=== PATIENT | female | born 1965 | race Caucasian/White ===

== ENCOUNTER 2020-03-03 07:44 | Outpatient (CLI) | payer BC, SELFPAY ==
[2020-03-03 08:31] LABS: Alanine Aminotransferase 21 U/L (4-35); Albumin Level 4.3 g/dL (3.5-5.1); Alkaline Phosphatase 55 U/L (38-126); Aspartate Amino Transferase 22 U/L (14-36); Bilirubin,Total 0.6 mg/dL (0.2-1.3); Blood Urea Nitrogen 12 mg/dL (7-17); Calcium 8.9 mg/dL (8.4-10.2); Carbon Dioxide 29 mmol/L (22-30); Chloride 103 mmol/L (98-107); Cholesterol 212 mg/dL (0-200); Estimated Glomerular Filt Rate > 60; Glucose 95 mg/dL (65-105); HDL Direct 49 mg/dL; Potassium 3.8 mmol/L (3.4-5.0); Sodium 138 mmol/L (137-145); Triglycerides 77 mg/dL (<150)
[2020-03-03 08:42] LABS: LDL Cholesterol Direct 137 mg/dL
[2020-03-07 00:26] LABS: Vitamin D 1,25 (OH)2 Total 40 pg/mL (18-72); Vitamin D2 1,25 (OH)2 <8 pg/mL; Vitamin D3 1,25 (OH)2 40 pg/mL
== END 2020-03-03 07:45 | disposition home or self-care (01) ==
PROVIDERS: PCP Family Medicine; Visit Provider Physician Assistant
DX: I10 Essential (primary) hypertension (principal); E78.2 Mixed hyperlipidemia; E55.9 Vitamin D deficiency, unspecified
CPT/HCPCS: 36415; 80053; 80061; 82652

== ENCOUNTER 2021-05-18 10:10 | Outpatient (CLI) | payer BC, SELFPAY ==
[2021-05-18 11:56] LABS: Alanine Aminotransferase 34 U/L (4-35); Albumin Level 4.5 g/dL (3.5-5.1); Alkaline Phosphatase 62 U/L (38-126); Anion Gap 5 mmol/L (8-16); Aspartate Amino Transferase 30 U/L (14-36); Bilirubin,Total 0.8 mg/dL (0.2-1.3); Blood Urea Nitrogen 14 mg/dL (7-17); Calcium 9.4 mg/dL (8.4-10.2); Carbon Dioxide 31 mmol/L (22-30); Chloride 103 mmol/L (98-107); Cholesterol 220 mg/dL (0-200); Estimated Glomerular Filt Rate > 60; Glucose 95 mg/dL (65-110); HDL Direct 52 mg/dL; Potassium 4.1 mmol/L (3.4-5.0); Sodium 139 mmol/L (137-145); Triglycerides 60 mg/dL (<150)
[2021-05-18 12:07] LABS: LDL Cholesterol Direct 117 mg/dL
[2021-05-18 12:29] LABS: Thyroid Stimulating Hormone 0.738 uIU/mL (0.465-4.680)
[2021-05-18 12:32] LABS: Free T4 Free Thyroxine 1.22 ng/mL (0.78-2.19)
[2021-05-23 22:11] LABS: Vitamin D 1,25 (OH)2 Total 42 pg/mL (18-72); Vitamin D2 1,25 (OH)2 <8 pg/mL; Vitamin D3 1,25 (OH)2 42 pg/mL
== END 2021-05-18 10:11 | disposition home or self-care (01) ==
PROVIDERS: PCP Family Medicine; Visit Provider Physician Assistant
DX: E55.9 Vitamin D deficiency, unspecified (principal); R53.83 Other fatigue; I10 Essential (primary) hypertension; E78.5 Hyperlipidemia, unspecified
CPT/HCPCS: 36415; 80053; 80061; 82652; 84439; 84443

== ENCOUNTER 2022-04-26 10:31 | Outpatient (CLI) | payer BC, SELFPAY ==
--- NOTE | ~2022-04-26 | XR_ITS ---
EXAM: XR hip LT min 3V w AP pelvis DATE: 04/26/2022 11:04 HISTORY: M25.559 - Pain in unspecified hip, lateral pain, NKI . COMPARISON: None available. FINDINGS: Normal mineralization. No fracture or dislocation. No lytic or blastic lesion. Joint space s are maintained. No erosion or periosteal change. Soft tissues within normal limits. IMPRESSION: No acute osseous finding in the left hip or pelvis. Reviewed, dictated and finalized at location K.
[2022-04-26 11:08] LABS: Alanine Aminotransferase 28 U/L (6-35); Albumin Level 4.3 g/dL (3.5-5.1); Alkaline Phosphatase 59 U/L (38-126); Anion Gap 8 mmol/L (8-16); Aspartate Amino Transferase 24 U/L (14-36); Bilirubin,Total 0.9 mg/dL (0.2-1.3); Blood Urea Nitrogen 12 mg/dL (7-17); Calcium 9.1 mg/dL (8.4-10.2); Carbon Dioxide 29 mmol/L (22-30); Chloride 102 mmol/L (98-107); Cholesterol 226 mg/dL (0-200); Estimated Glomerular Filt Rate > 60; Glucose 98 mg/dL (65-110); HDL Direct 52 mg/dL; Potassium 3.9 mmol/L (3.4-5.0); Sodium 139 mmol/L (137-145); Triglycerides 79 mg/dL (<150)
[2022-04-26 11:19] LABS: LDL Cholesterol Direct 142 mg/dL
== END 2022-04-26 10:32 | disposition home or self-care (01) ==
PROVIDERS: PCP Family Medicine; Visit Provider Physician Assistant
DX: E78.5 Hyperlipidemia, unspecified (principal); I10 Essential (primary) hypertension; Z13.1 Encounter for screening for diabetes mellitus; Z13.220 Encounter for screening for lipoid disorders; M25.559 Pain in unspecified hip
CPT/HCPCS: 36415; 73502; 80053; 80061

== ENCOUNTER 2024-04-23 10:49 | Outpatient (CLI) | payer BC, SELFPAY ==
[2024-04-23 11:28] LABS: Alanine Aminotransferase 29 U/L (6-35); Albumin Level 4.2 g/dL (3.5-5.1); Alkaline Phosphatase 60 U/L (38-126); Anion Gap 9 mmol/L (4-12); Aspartate Amino Transferase 24 U/L (14-36); Bilirubin,Total 0.8 mg/dL (0.2-1.3); Blood Urea Nitrogen 11 mg/dL (7-17); Calcium 9.1 mg/dL (8.4-10.2); Carbon Dioxide 28 mmol/L (22-30); Chloride 100 mmol/L (98-107); Cholesterol 241 mg/dL (0-200); Estimated Glomerular Filt Rate > 60; Glucose 103 mg/dL (65-110); HDL Direct 47 mg/dL; Potassium 4.3 mmol/L (3.4-5.0); Sodium 137 mmol/L (137-145); Triglycerides 107 mg/dL (<150)
[2024-04-23 11:39] LABS: LDL Cholesterol Direct 157 mg/dL
== END 2024-04-23 10:50 | disposition home or self-care (01) ==
LOC: ANHLAB 10:51
PROVIDERS: PCP Family Medicine; Visit Provider Physician Assistant Medical
DX: E78.2 Mixed hyperlipidemia (principal); I10 Essential (primary) hypertension
CPT/HCPCS: 36415; 80053; 80061

== ENCOUNTER 2025-04-15 08:58 | Outpatient (CLI) | payer BC, SELFPAY ==
--- OUTSIDE RECORDS SUMMARY | 2025-04-15 09:01 | XMS_ITS | Clinical Summary ---
Author Organization [facility] Address [address] [place] [address] Phone Care Team Providers Care Supervisor Metal Placing Name Role Phone Tatyana Wiseman MD Primary Care Provider [phone] Allergies Active Allergy Reactions Criticality Noted Date Comments Benzoyl Peroxide Unknown,Hives 08/06/2017 Codeine Nausea,Vomiting Reaction: Nausea, Vomiting, Diclofenac Itching,Swelling Reaction: swelling, itching, Hydromorphone Hcl Hives 10/17/2015 Hydrocodone Vomiting High 08/06/2017 Hydromorphone Hives Reaction: hives, Penicillins Unknown,Rash 10/17/2015 Reaction: Rash, Pravastatin Sodium Rash 08/18/2017 Sulfa Antibiotics Rash 10/17/2015 Bactrim/ septra Sulfamethoxazole Rash Reaction: Rash, Sulfanilamide Rash Reaction: Rash, Trimethoprim Rash Reaction: Rash, Diclofenac Sodium Unknown 10/17/2015 Medications Triamcinolone Acetonide (NASACORT AQ) 55 MCG/ACT Aerosol 1-2 Sprays by Nasal route daily. 3 Bottle 3 6 Active estradiol (CLIMARA) 0.075 MG/24HR PATCH BIWEEKLY Take 0.075 mg by mouth twice a week. 6 Active Ergocalciferol (VITAMIN D2) 2000 UNITS Tablet 6 Active Probiotic Product (TRUBIOTICS PO) 6 Active azelastine (ASTELIN) 0.1 % SolutionIndications :Allergic rhinitis due to pollen, unspecified rhinitis seasonality 2 Sprays by Nasal route 2 times daily. Use in each nostril as directed 3 Bottle 3 7 Active metoprolol Succinate (TOPROL-XL) 100 MG TABLET SR 24 HR Take 1 Tab by mouth daily. 90 Tab 3 7 Active potassium chloride CR (KLORCON) 10 MEQ Tablet Controlled Release Take 1 Tab by mouth 2 times daily. 180 Tab 3 7 Active fexofenadine (JOVAN) 180 MG Tablet Take 180 mg by mouth daily. Active glucosamine-chondro itin 500-400 MG Capsule Take 1 Cap by mouth 2 times daily. Active Multiple Vitamin (MULTIVITAMIN IRON-FREE) Tablet Take by mouth daily. Active Cholecalciferol (VITAMIN D3) 1000 UNIT TabletIndications:t akes 2000 uinits daily Take 1,000 Units by mouth. Active atorvastatin (LIPITOR) 10 MG TabletIndications:H yperlipidemia, unspecified hyperlipidemia type Take 1 Tab by mouth daily. 30 Tab 3 7 Active Active Problems Problem Noted Date Diagnosed Date Obesity (BMI 30.0-34.9) 08/18/2017 Allergic rhinitis due to pollen 06/23/2016 Hypokalemia 12/20/2015 Hypertension Hyperlipidemia Migraines Anxiety Resolved Problems Problem Noted Date Diagnosed Date Resolved Date Obesity (BMI 35.0-39.9 without comorbidity) 12/20/2015 08/18/2017 Encounters Date Type Department Care Team Description 04/04/2025 4:44 PM CDT - 04/04/2025 11:59 PM CDT Hospital Encounter [facility] Mammography [address] [place] [address] Tatyana Wiseman MD Discharge Disposition: Discharged to home or Selfcare 04/04/2025 Travel from Last 3 Months Immunizations Immunization Administration Dates Next Due Covid-19, Mrna, Lnp-s, PF, 1 00 mcg/0.5 mL Dose (Moderna) 10/30/2020,10/05/2020 Influenza Vaccine greater than 3 yrs 06/28/2015, 09/28/2010 06/28/2016 Influenza Vaccine, Quadrivalent, PF 05/30,07/17/2022,07/01/2021,07/05,07/06/2019,06/24/2017 Pneumococcal Vaccine Adult - 23 Valent 09/28/2008 TD VACCINE 09/28/2006 Family History Medical History Relation Name Comments Cancer Father Breast Cancer Maternal Aunt High Cholesterol Mother Hypertension Mother Osteoarthritis Mother Relation Name Status Comments Father Maternal Aunt Mother Alive Social History Tobacco Use Types Packs/Day Years Used Date Smoking Tobacco: Never Smokeless Tobacco: Never Alcohol Use Standard Drinks/Week Comments Yes 1 (1 standard drink = 0.6 oz pur e alcohol) Sexually Active Control Partners Comments Yes Comments No Sex and Gender Information Value Date Recorded Sex Assigned at Not on file Legal Sex Female 9:17 PM CDT Gender Identity Not on file Sexual Orientation Not on file Last Filed Vital Signs Vital Sign Reading Time Taken Comments Blood Pressure 130/76 08/18/2017 4:13 PM FRONT COUNTER ATTENDANT Pulse 74 08/18/2017 4:13 PM FRONT COUNTER ATTENDANT Temperature 36.1 C (97 F) 08/18/2017 4:13 PM FRONT COUNTER ATTENDANT Respiratory Rate 20 08/18/2017 4:13 PM FRONT COUNTER ATTENDANT Oxygen Saturation 98% 08/18/2017 4:13 PM FRONT COUNTER ATTENDANT Inhaled Oxygen Concentration - - Weight 92.8 kg (204 lb 8 oz) 08/18/2017 4:13 PM FRONT COUNTER ATTENDANT Height 165.1 cm (5' 5) 08/18/2017 4:13 PM FRONT COUNTER ATTENDANT Body Mass Index 34.03 08/18/2017 4:13 PM FRONT COUNTER ATTENDANT Plan of Treatment Health Maintenance Due Date Last Done Comments Hepatitis C Virus (HCV) Screening 1965 TdaP Immunization 1963 Cologuard 2008 Pneumococcal Immunization (50+ years) (2 of 2 - PCV) 2013 09/28/2008 Zoster Immunization (1 of 2) 2013 Immunochemical Fecal Occult Blood 07/16/2021 07/16/2020, 06/29/2018, 06/15/2016, Additional history exists Colonoscopy 01/28/2022 01/29/2012 Colorectal Cancer Screening 01/28/2022 Influenza Immunization (#1) 05/29/202505/30, 07/17/2022, 07/01/2021, Additional history exists Mammogram 04/04/2026 04/04/2025, 03/28, 08/20/2020, Additional history exists Respiratory Syncytial Virus (RSV) Immunization (Adult) (1 - 1-dose 75+ series) 2038 Pneumococcal Immunization Combined Discontinued 09/28/2008 SARS-COV-2 Immunization Completed 06/24/20 24, 07/13/2023, 09/23/2022, Additional history exists Hepatitis B Immunization Aged Out No longer eligible based on patient's age to complete this topic Human Papillomavirus (HPV) Immunization Aged Out No longer eligible based on patient's age to complete this topic Meningococcal Immunization (ACWY) Aged Out No longer eligible based on patient's age to complete this topic Rotavirus Immunization Aged Out No lo nger eligible based on patient's age to complete this topic Procedures Procedure Name Priority Date/Time Associated Diagnosis Comments [place] SCREENING BILATERAL DIGITAL W CAD W ANAMARIA Routine 04/04/2025 5:12 PM CDT Visit for screening mammogram STOOL, OCCULT BLOOD, DIAGNOSTIC, VIA GUAIAC Routine 06/15/2016 9:00 AM CDT Erythema annulare centrifugum HM COLONOSCOPY Routine 01/29/2012 from Last 3 Months or Most Recently Relevant to Health Maintenance Results * [place] SCREENING BILATERAL DIGITAL W CAD W ANAMARIA (04/04/2025 5:12 PM CDT) Anatomical Region Laterality Modality breast Bilateral Mammography 04/04/2025 4:47 PM CDT Narrative 04/06/2025 10:49 AM CDT - [place] SCREENING BILATERAL DIGITAL W CAD W [place]NAM[place]IA BILATERAL DIGITAL SCREENING MAMMOGRAM 3D/2D WITH CAD WITH MEDIOLATERAL OBLIQUE CRANIOCAUDAL: 04/04/2025 The study was acquired using digital technology and interpreted from soft copy. Current study was also evaluated with ICAD version 7.2. 2D digital mammographic views, as well as 3D digital tomosynthesis were performed in the CC and MLO projections. CLINICAL: Routine screening. Patient has no complaints. No personal history of cancer. Sister with postmenopausal breast cancer. Two maternal aunts had breast cancer. COMPARISONS: Comparison is made to exams dated: 04/06/2023, 08/20/2020, 04/19/2019, and 12/25/2017 [facility]. BREAST TISSUE:There are scattered areas of fibroglandular density. FINDINGS: No significant masses, calcifications, or other findings are seen in either breast. There has been no significant interval change. IMPRESSION: NEGATIVE There is no mammographic evidence of malignancy. A 1 year screening mammogram is recommended. A letter will be sent to the patient with these results. The patient will be entered into a reminder system with a target due date of 1 year for her next screening exam. Electronically signed by: Sobia soto/penrad:04/05/2025 20:27:39 Conceptor(s): RT Maddie(R)(M), [facility] letter sent: Normal Exam Reading location: [facility] Mammogram BI-RADS: Category 1: Negative Procedure Note Soiba Kuhn MD - 04/06/2025 - [place] SCREENING BILATERAL DIGITAL W CAD W ANAMARIA BILATERAL DIGITAL SCREENING MAMMOGRAM 3D/2D WITH CAD WITH MEDIOLATERAL OBLIQUE CRANIOCAUDAL: 04/04/2025 The study was acquired using digital technology and interpreted from soft copy. Current study was also evaluated with ICAD version 7.2. 2D digital mammographic views, as well as 3D digital tomosynthesis were performed in the CC and MLO projections. CLINICAL: Routine screening. Patient has no complaints. No personal history of cancer. Sister with postmenopausal breast cancer. Two maternal aunts had breast cancer. COMPARISONS: Comparison is made to exams dated: 04/06/2023, 08/20/2020, 04/19/2019, and 12/25/2017 [facility]. BREAST TISSUE:There are scattered areas of fibroglandular density. FINDINGS: No significant masses, calcifications, or other findings are seen in either breast. There has been no significant interval change. IMPRESSION: NEGATIVE There is no mammographic evidence of malignancy. A 1 year screening mammogram is recommended. A letter will be sent to the patient with these results. The patient will be entered into a reminder system with a target due date of 1 year for her next screening exam. Electronically signed by: Sobia soto/penrad:04/05/2025 20:27:39 Conceptor(s): Nat Marshall, RT(R)(M), [facility] letter sent: Normal Exam Reading location: [facility] Mammogram BI-RADS: Category 1: Negative us Tatyana Wiseman MD IMG MAMMO ORDERABLES Final Resul t * STOOL, OCCULT BLOOD, DIAGNOSTIC (06/15/2016 9:00 AM CDT) OCCULT BLOOD DIAG Negative Negative 06/16/2016 9:25 AM CDT [facility] Stool specimen (specimen) STOOL SPECIMEN / Unknown Non-Phlebotomy Collection / Unknown 06/15/2016 9:00 AM CDT 06/16/2016 8:32 AM CDT us Tim He MD BODY FLUIDS & STOOLS ORDERABLE S Final Result [facility] [address] [place] [address] * COLONOSCOPY (01/29/2012) us Pema Rossi MD PROCEDURE/MINOR SURGICAL ORD ERABLES Final Result from Last 3 Months or Most Recently Relevant to Health Maintenance Insurance [facility] [[email or web address]] Care Teams Supervisor Metal Placing Relationship Specialty Start Date End Date Tatyana Wiseman MD [address] [id number] PCP - General Family Medicine 01/28/19
--- OUTSIDE RECORDS SUMMARY | 2025-04-15 09:01 | XMS_ITS | Clinical Summary ---
Author Organization [facility] Address [address] [place] [place] [address] Care Team Providers Care Canvas Shrinker Name Role Phone Unavailable Primary Care Provider Unavailabl e Source Comments [facility],non-owned Affiliates and Associated Physician Practices is amultiple site organization consisting of ambulatory clinics and hospital sitesin [place], [place], [place] and [place]. This disclosure is being madepursuant to the Care Everywhere program and may not contain all information available regarding this patient. Last updated 18.[facility] Social History Tobacco Use Types Packs/Day Years Used Date Smoking Tobacco: Never Assessed Sex and Gender Information Value Date Recorded Sex Assigned at Not on file Legal Sex Male 2:57 PM CDT Gender Identity Not on file Sexual Orientation Not on file Plan of Treatment Health Maintenance Due Date Last Done Comments COLOGUARD (AGES 45-75) - COL ON CA SCREENING 1963 COLON MONITORING 1963 COLONOSCOPY - COLON CA SCREENING 1963 CT COLONOGRAPHY - COLON CA SCREENING 1963 Colorectal Cancer Screening 1963 FIT - COLON CA SCREENING 1963 FLEX SIG - COLON CA SCREENING 1963 LIPID TESTING 1963 HIV SCREENING 1978 HEPATITIS C SCREENING 10/05/1981 DTAP/TDAP/TD VACCINES (1 - Tdap) 1982 PNEUMOCOCCAL VACCINE 50+ (1 of 1 - PCV) 2013 ZOSTER VACCINE (1 of 2) 2013 COVID-19 VACCINE ( - 2023-2 5 season) 2024 DEPRESSION SCREENING 09/28/2024 INFLUENZA VACCINE (#1) 2025 Respiratory Syncytial Virus (RSV) Vaccine Pt: or over 60 yrs (1 - 1-dose 75+ series) 2038 HEPATITIS B VACCINE Aged Out No longe r eligible based on patient's age to complete this topic HIB VACCINE Aged Out No longer eligi ble based on patient's age to complete this topic HPV VACCINE Aged Out No longer eligi ble based on patient's age to complete this topic MENINGOCOCCAL (Group B) VACC INE SHARED DECISION-MAKING Aged Out No longer eligibl e based on patient's age to complete this topic MENINGOCOCCAL GROUPS A/C/Y/W VACCINE Aged Out No longer eligible b ased on patient's age to complete this topic Insurance [facility]
--- OUTSIDE RECORDS SUMMARY | 2025-04-15 09:01 | XMS_ITS | Clinical Summary ---
Author Organization [facility] Address [address] [place] [address] Care Team Providers Care Geographic Information Systems Director Name Role Phone Tatyana Wiseman MD Primary Care Provider [phone] Allergies Active Allergy Reactions Criticality Noted Date Comments Codeine Nausea only,Vomiting Reaction: Nausea, Vomiting, Diclofenac Swelling,Itching Reaction: swelling, itching, Hydromorphone Hives Reaction: hives, Penicillins Rash Reaction: Rash, Sulfamethoxazole Rash Reaction: Rash, Sulfanilamide Rash Reaction: Rash, Trimethoprim Rash Reaction: Rash, Medications metoprolol XL (TOPROL-XL) 100 mg 24 hr tablet take 1 tablet by oral route every day 0 0 4 Active potassium chloride ER (potassium chloride ER) 10 mEq CR tablet take 2 capsule by oral route 2 times every day with food 0 0 4 Active triamcinolone (NASACORT) 55 mcg nasal inhaler use as needed 0 spray 0 5 Active lactobacillus combination no.4 (PROBIOTIC) 3 billion cell capsule 0 0 6 Active glucosamine-anay droit-vit C-Mn (GLUCOSAMINE CHONDROITIN MAXSTR) 500-400 mg capsule bid 0 0 1 Active multivitamin, adult, (multiple vitamin) solution daily 0 0 1 Active cholecalciferol (VITAMIN D-3) 2,000 unit capsule 1 capsule (2,000 Units total) Active azelastine (ASTELIN) 137 mcg (0.1 %) nasal spray Administer 1 spray into each nostril 2 (two) times a day Use in each nostril as directed Active omega-3 fatty acids-fish oil 300-1,000 mg capsule Take 2 capsules (2 g total) by mouth daily Active magnesium oxide (MAG-OX) 250 mg (150.8 mg elemental) tabletIndication s:hypomagnesemia 1 tablet (250 mg total) daily Active estradioL (Sunni) 0.025 mg/[address] 1 patch on the skin 2 (two) times a week 26 patch 3 5 Active Active Problems Problem Noted Date Diagnosed Date Hemangioma of liver 05/05/2016 Overview (01/02/2017): Liver hemangioma Hyperlipidemia 04/24/2014 Overview (01/02/2017): Hyperlipidemia Endometriosis 02/11/2014 Overview (01/02/2017): Endometriosis Hypertension 02/11/2014 Overview (01/02/2017): Hypertension Surgical History Surgery Date Site/Laterality Comments LASAROSCOPIC SUPRACERVICAL HYSTERECTOMY W/ BILATERAL SALPINGOOPHORECTOMY 09/28/2005 - 09/27/2006 LSH/BSO TONSILLECTOMY 09/28/2003 - 09/27/2004 Tonsillectomy OVARIAN CYSTECTOMY 09/28/1986 - 09/27/1987 Ovarian Cystectomy OOPHORECTOMY 09/28/1981 - 09/27/1982 Oophorectomy HYSTERECTOMY 09/28/2005 - 09/27/2006 LSH with BSO Medical History Medical History Date Comments Hx Other Medical 2016 Erythema annual re centrifugum Hx Other Medical Spinal stenosis Family History Medical History Relation Name Comments Diabetes Maternal Grandfather Diabete s mellitus; Hyperlipidemia Mother hypercholeste rolemia; Hypertension Mother Hypertension; Breast cancer Mother's Sister 1 Breast cancer Mother's Sister 2 Uterine cancer Mother's Sister 3 Hypertension Sister 1 Hypertension; Thyroid disease Sister 2 Thyroid dise ase; Relation Name Status Comments Maternal Grandfather Mother Mother's Sister 1 Mother's Sister 2 Mother's Sister 3 Sister 1 Sister 2 Social History Tobacco Use Types Packs/Day Years Used Date Smoking Tobacco: Never Smokeless Tobacco: Never Tobacco Cessation:Counseling Given: Not Answered Alcohol Use Standard Drinks/Week Comments Yes 0 (1 standard drink = 0.6 oz pur e alcohol) Rare PHQ-2 Answer Date Recorded PHQ-2 Total Score (If total score is 3 or more points, staff should administer the PHQ-9) 0 10/31/2024 Comments No Sex and Gender Information Value Date Recorded Sex Assigned at Not on file Legal Sex Female 11:59 AM METERS SUPERINTENDENT Gender Identity Not on file Sexual Orientation Not on file Obstetrics History Para Term AB IAB SAB Ectopic Multiple Livin g Live Births 0 0 0 0 0 0 0 0 0 0 0 Last Filed Vital Signs Vital Sign Reading Time Taken Comments Blood Pressure 126/82 10/31/2024 2:59 PM METERS SUPERINTENDENT Pulse 71 01/03/2013 4:40 PM CDT Temperature - - Respiratory Rate - - Oxygen Saturation - - Inhaled Oxygen Concentration - - Weight 102.5 kg (226 lb) 10/31/2024 2:59 PM METERS SUPERINTENDENT Height 165.1 cm (5' 5) 10/31/2024 2:59 PM METERS SUPERINTENDENT Body Mass Index 37.61 10/31/2024 2:59 PM METERS SUPERINTENDENT Plan of Treatment Health Maintenance Due Date Last Done Comments Hepatitis C Screening 1963 Hepatitis B Screening 1981 DTaP/Tdap/Td Vaccine (1 - Tdap) 09/29/2006 09/28/2006 Zoster Vaccine (1 of 2) 2013 Breast Cancer Screening-Mammogram 04/06/2024 04/06/2023, 04/06/2023, 08/20/2020, Additional history exists Covid-19 Vaccine ( season) 2024 10/30/2020, 10/05/2020 Influenza Vaccine (Season Ended) 2025 06/24/2023, 07/17/2022, 07/01/2021, Additional history exists Depression Screening 10/31/2025 10/31/2024, 08/24/2023, 07/30/2021, Additional history exists Regular Well Visit/Exam 18-64 10/31/2025 10/31/2024, 08/24/2023, 08/05/2022, Additional history exists Colon Cancer Screening-Colonoscopy 07/17/2026 07/17/2016 Pneumococcal vaccine <65 Aged Out 09/28/2008 No longer eligible based on patient's age to complete this topic Colon Cancer Screening-CT Colonography Discontinued 07/17/2016 Colon Cancer Screening-DNA Stool Discontinued 07/17/2016 Colon Cancer Screening-FIT Discontinued 07/17/2016 Colon Cancer Screening-Sigmoidoscopy Discontinued 07/17/2016 Cervical Cancer Screening Discontinued 2021, 07/11/2019, 06/16/2016, Additional history exists Procedures Procedure Name Priority Date/Time Associated Diagnosis Comments PAP AND HIGH RISK HPV, REFLEX TO GENOTYPING Routine 08/05/2022 4:02 PM METERS SUPERINTENDENT Well woman exam MAMMOGRAPHY Schedule Routine, Read Routine (OP Routine) 04/19/2019 HM COLONOSCOPY Routine 07/17/2016 from Last 3 Months or Most Recently Relevant to Health Maintenance Results * Pap and High Risk HPV, reflex to Genotyping (08/05/2022 4:02 PM METERS SUPERINTENDENT) CLINICAL INFORMATION: [facility] Comment:WELL WOMAN EXAM LMP [facility] Comment: FT SUPRACERVICAL HYST Previous Pap [facility] Comment:NONE GIVEN Prev. Bx [facility] Comment:NONE GIVEN SOURCE: [facility] Comment:Cervix, Endocervix Pap, specimen adequacy [facility] Comment: Satisfactory for evaluation. Endocervical/transformation zone component present. HPV interp [facility] Comment:Negative for intraep ithelial lesion or malignancy. Nascar Driver [facility] Comment: LMT, CT(ASCP) CT screening location: [place] [address] [address] [address] Review field administrator [facility] Comment: BKA, CT(ASCP) CT screening location: [place] [address] [address] [address] Comment [facility] Comment: EXPLANATORY NOTE: The Pap is a screening test for cervical cancer. It is not a diagnostic test and is subject to false negative and false positive results. It is most reliable when a satisfactory sample, regularly obtained, is submitted with relevant clinical findings and history, and when the Pap result is evaluated along with historic and current clinical information. Human papillomavirus DNA, High Risk E6/E7 Not Detected NOT DETECTED [facility] Comment: Not Detected High Risk HPV types (16,18,31,33,35,39,45,51,52, 56,58,59,66,68) were not detected. Other HPV types which cause anogenital lesions may be present. The significance of the other types of HPV in malignant processes has not been established. Methodology: Real Time PCR Thin prep 08/05/2022 4:02 PM METERS SUPERINTENDENT 08/06/2022 8:59 AM METERS SUPERINTENDENT Merritt Yeung MD LAB CYTOLOGY ORDERABLES Fi nal Result [facility] [address] [place] [address] [facility] [address] [place] [address] * MAMMOGRAPHY (04/19/2019) Anatomical Region Laterality Modality Breast Mammography Merritt Yeung MD IMG MAMMO PROCEDURES Final Result * COLONOSCOPY (07/17/2016) Colonoscopy Normal Yin Kramer MD HEALTH MAINTENANCE Final Result from Last 3 Months or Most Recently Relevant to Health Maintenance Insurance [facility] OOS BLUE ACCESS OOS Care Teams Geographic Information Systems Director Relationship Specialty Start Date End Date Tatyana Wiseman MD PCP - General Family Medicine 06/29/18
--- OUTSIDE RECORDS SUMMARY | 2025-04-15 09:01 | XMS_ITS | Encounter Summary ---
Author Organization [facility] Address [address] [place] [address] Care Team Providers Care Partner Cco Name Role Phone Unavailable Primary Care Provider Unavailabl e Encounter Details Date Type Department Care Team (Late st Contact Info) Description 12/16/2023 Lab Requisition [facility] - DermPath Lab [address] [place] [address] Karo Parnell MD [address] [facility] [address] [place] [address] Social History Tobacco Use Types Packs/Day Years Used Date Smoking Tobacco: Never Assessed Sex and Gender Information Value Date Recorded Sex Assigned at Not on file Legal Sex Male 2:57 PM CDT Gender Identity Not on file Sexual Orientation Not on file documented as of this encounter Plan of Treatment Not on file documented as of this encounter Procedures Procedure Name Priority Date/Time Associated Diagnosis Comments DERMATOPATHOLOGY Routine 12/16/2023 1:59 PM CDT documented in this encounter Results * DERMATOPATHOLOGY (12/16/2023 1:59 PM CDT) Case Report Dermatopathology Report Case: [id number] Authorizing Provider: Karo Parnell MD Collected: 12/16/2023 01:59 PM Ordering Location: [facility] - Received: 12/17/2023 01:41 PM DermPath Lab Pathologist: Marya Joel MD Specimen: Skin, superior to right ear 4 3:52 PM CDT DERMATOPATHOLOGY LABORATORY Final Diagnosis Specimen A. SKIN, superior to right ear: SEBORRHEIC KERATOSIS, INFLAMED (L82.0) 4 3:52 PM CDT DERMATOPATHOLOGY LABORATORY at 1552 CDT Clinical History R/O; SK vs IRREGULAR NEVUS vs OTHER, IRREGULAR COLOR. 4 3:52 PM CDT DERMATOPATHOLOGY LABORATORY Gross Description Specimen A: Received is one formalin filled container labeled with the patient's name and designated superior to right ear. The specimen consists of a shave biopsy measuring 6x5x1 mm. Jar 0. 3:52 PM CDT DERMATOPATHOLOGY LABORATORY Microscopic Description Specimen A. SKIN, superior to right ear: There is hyperkeratosis, parakeratosis, papillomatosis, and acanthosis of the epidermis. There is a lymphohistiocytic infiltrate within the papillary dermis that is focally lichenoid. 4 3:52 PM CDT DERMATOPATHOLOGY LABORATORY Disclaimer An external and internal positive and negative controls are appropriate for the histochemical, immunohistochemical and immunofluorescence stain(s) in this case (if any), except where stated explicitly. The performance characteristics of the stain(s) cited in this report were developed and its performance characteristic determined by the Dermatopathology Laboratory at [facility], directed by Dr. Dipti Gaxiola. These tests need not be, and therefore are not, approved by the [place] Food and Drug Administration. The tests are used for clinical purposes. Billing Codes Specimen Charges Stain Charges 37679 1 4 3:52 PM CDT DERMATOPATHOLOGY LABORATORY Embedded Images 3:52 PM CDT DERMATOPATHOLOGY LABORATORY Pathology/Cytolo gy TISSUE SPECIMEN FROM SKIN / Unknown 12/16/2023 1:59 PM CDT 12/17/2023 1:41 PM CDT Karo Parnell MD LAB - PATHOLOGY/CYTOLOGY OR DERABLES Final Result DERMATOPATHOLOGY LABORATORY [facility] - Department of Dermatology [address] [place] [address], [facility] [phone] documented in this encounter Visit Diagnoses Not on filedocumented in this encounter
--- OUTSIDE RECORDS SUMMARY | 2025-04-15 09:01 | XMS_ITS | Referral Summary ---
Author Organization [facility] Address [address] [place] [address] Care Team Providers Care Reports Analysis Manager Name Role Phone Tatyana Wiseman MD Primary Care Provider [phone] Allergies Active Allergy Reactions Criticality Noted Date [...] (two) times a week 26 patch 3 Active Active Problems Problem Noted Date Diagnosed Date Hemangioma of liver 05/05/2016 Overview (01/02/2017): Liver hemangioma Hyperlipidemia 04/24/2014 Overview (01/02/2017): Hyperlipidemia Endometriosis 02/11/2014 Overview (01/02/2017): Endometriosis Hypertension 02/11/2014 Overview (01/02/2017): Hypertension Social History Tobacco Use Types Packs/Day Years [...] on file Legal Sex Female 11:59 AM [employer] Gender Identity Not on file Sexual Orientation Not on file Last Filed Vital Signs Vital Sign Reading Time Taken Comments Blood Pressure 126/82 10/31/2024 2:59 PM [employer] Pulse 71 01/03/2013 4:40 PM CDT Temperature - - Respiratory Rate - - Oxygen Saturation - - Inhaled Oxygen Concentration - - Weight 102.5 kg (226 lb) 10/31/2024 2:59 PM [employer] Height 165.1 cm (5' 5) 10/31/2024 2:59 PM [employer] Body Mass Index 37.61 10/31/2024 2:59 PM [employer] Plan of Treatment Not on file Procedures Procedure Name Priority Date/Time Associated Diagnosis Comments PAP AND HIGH RISK HPV, REFLEX TO GENOTYPING Routine 08/05/2022 4:02 PM [employer] Well woman exam MAMMOGRAPHY Schedule Routine, Read Routine (OP Routine) 04/19/2019 HM COLONOSCOPY Routine 07/17/2016 from Last 3 Months or Most Recently Relevant to Health Maintenance Results * Pap and High Risk HPV, reflex to Genotyping (08/05/2022 4:02 PM [employer]) CLINICAL INFORMATION: [facility] Comment:WELL WOMAN EXAM LMP [facility] Comment: FT SUPRACERVICAL HYST Previous Pap [facility] Comment:NONE GIVEN Prev. Bx [facility] [employer] [facility] Comment:NONE GIVEN SOURCE: [facility] Comment:Cervix, Endocervix Pap, specimen adequacy [facility] Comment: Satisfactory for evaluation. Endocervical/transformation zone component present. HPV interp [facility] Comment:Negative for intraep ithelial lesion or malignancy. Filling Hauler Que [facility] Comment: LMT, CT(ASCP) CT screening location: [place] [address] [place] [address] Review wire charger [facility] Comment: BKA, CT(ASCP) CT screening location: [place] [address] [place] [address] Comment [facility] Comment: EXPLANATORY NOTE: The Pap is a [...] High Risk E6/E7 Not Detected NOT DETECTED [employer] [facility] Comment: Not Detected High Risk HPV types (16,18,31,33,35,39,45,51,52, 56,58,59,66,68) were not detected. Other HPV types which cause anogenital lesions may be present. The significance of the other types of HPV in malignant processes has not been established. Methodology: Real Time PCR Thin prep 08/05/2022 4:02 PM [employer] 08/06/2022 8:59 AM [employer] Merritt Yeung MD LAB CYTOLOGY ORDERABLES Fi nal Result [facility] [address] [place] [address] [facility] [address] [place] [address] * MAMMOGRAPHY (04/19/2019) Anatomical Region Laterality Modality Breast Mammography Merritt Yeung MD IMG MAMMO PROCEDURES Final Result * COLONOSCOPY (07/17/2016) Colonoscopy Normal Yin Kramer MD HEALTH MAINTENANCE Final Result from Last 3 Months or Most Recently Relevant to Health Maintenance Insurance [employer] Care Teams Reports Analysis Manager Relationship Specialty Start Date End Date Tatyana Wiseman MD PCP - General Family Medicine 06/29/18
[2025-04-15 10:19] LABS: Alanine Aminotransferase 30 U/L (6-35); Albumin Level 4.3 g/dL (3.5-5.1); Alkaline Phosphatase 51 U/L (38-126); Anion Gap 9 mmol/L (4-12); Aspartate Amino Transferase 31 U/L (14-36); Bilirubin,Total 0.8 mg/dL (0.2-1.3); Blood Urea Nitrogen 13 mg/dL (7-17); Calcium 9.4 mg/dL (8.4-10.2); Carbon Dioxide 26 mmol/L (22-30); Chloride 103 mmol/L (98-107); Cholesterol 246 mg/dL (0-200); Estimated Glomerular Filt Rate > 60; Glucose 104 mg/dL (65-110); HDL Direct 47 mg/dL; Potassium 4.2 mmol/L (3.4-5.0); Sodium 138 mmol/L (137-145); Total Protein 7.7 g/dL (6.3-8.2); Triglycerides 90 mg/dL (<150)
== END 2025-04-15 08:59 | disposition home or self-care (01) ==
LOC: ANHLAB 09:00
PROVIDERS: PCP Family Medicine; Visit Provider Family Medicine
DX: Z00.00 Encounter for general adult medical examination without abnormal findings (principal); I10 Essential (primary) hypertension; E78.2 Mixed hyperlipidemia
CPT/HCPCS: 36415; 80053; 80061

== ENCOUNTER 2025-08-08 10:30 | Outpatient (CLI) | payer BC, SELFPAY ==
--- NOTE | ~2025-08-08 | DEXA_ITS ---
Bone Density Report Name: HERMINIA HI Age: 59 Sex: Female Ethnicity: White Date of : 1965 Indication: postmenopausal; screening for osteoporosis; history of glucocorticoids; prior fracture; hysterectomy; Referring Provider: CELIO, RADHIKA Campoverde Study: Bone densitometry was performed. Exam Date: August 08, 2025 Accession number: [id number] Bone Density: Region BMD T-score Z-score Classification AP Spine(L1-L4) 1.110 0.6 2.1 Normal Femoral Neck (Left) 0.756 -0.8 0.5 Normal Total Hip (Left) 0.943 0.0 1.1 Normal Femoral Neck (Right) 0.814 -0.3 1.0 Normal Total Hip (Right) 0.926 -0.1 0.9 Normal Total Hip Mean 0.935 -0.1 1.0 Normal World Health Organization criteria for BMD impression classify patients as: Normal (T-score at or above -1.0), Osteopenia (T-score between -1.0 and -2.5), or Osteoporosis (T-score at or below -2.5). 10-year Fracture Risk: FRAX not reported because: All T-scores for Spine Total, Hip Total, Femoral Neck at or above -1.0 Clinical Information Provided by Patient: Has had a low trauma fracture Has taken Glucocorticoids Has used the following medications: HRT (i.e. estrogen/hormone therapy), Vitamin D, Calcium Has the following medical conditions: Hysterectomy Patient maximum height was 64 Menopause Age: 40 No regular weight bearing exercise Onset of menses at age 7 Number of children 0 Impression: The patient has normal bone mass. The patient has risk factors, including: previous fracture, history of glucocorticoid therapy. Discussion: BONE DENSITY IS ABOVE THE MINIMUM DESIRABLE LEVEL AT ALL SKELETAL SITES TESTED. This patient?s bone mineral density is above the minimum desirable level (T-score -1.0 or better) at all sites measured. The patient should follow a healthful lifestyle (good nutrition with adequate calcium and vitamin D, and appropriate weight-bearing exercise). Follow-Up: Consider repeating this study in 5 years or sooner if there is some new clinical indication. Reported by: CHRISTIANA on 08/08/2025 10:49:00 AM. Reviewed, dictated and finalized at location A.
== END 2025-08-08 10:31 | disposition home or self-care (01) ==
LOC: MICIMG 10:31
PROVIDERS: PCP Student in an Organized Health Care Education/Training Program; Visit Provider Family Medicine
DX: Z78.0 Asymptomatic menopausal state (principal)
CPT/HCPCS: 77080